=== PATIENT | female | born 1930 | race Caucasian/White ===

== ENCOUNTER 2020-06-29 11:58 | Observation (INO) ==
[2020-06-29] MEDS ORDERED: 0.9 % Sodium Chloride 500 ML IVC PRN (12:20)
[2020-06-29] MEDS ORDERED: DilTIAZem 50 MG/50 ML IV.SOLN IVC SCH (12:30)
[2020-06-29 12:31] LABS: Bilirubin,Urine Negative (Negative); Blood,Urine Trace-intact (Negative); Clarity,Urine Clear (Clear); Color,Urine Yellow (Yellow); Glucose,Urine (UA) Normal (Normal); Ketones,Urine Negative (Negative); Leukocyte Esterase,Urine Negative (Negative); Nitrite,Urine Negative (Negative); Protein,Urine Negative (Neg-Trace); Specific Gravity,Urine 1.015 (1.010-1.025); Urobilinogen,Urine Normal (Normal)
[2020-06-29 12:38] LABS: Bacteria,Urine Few per hpf (None-Few); RBC,Urine 0-3 per hpf (0-3); Squamous Epithelial Cell,Urine Few per hpf (None-Few); WBC,Urine 0-3 per hpf (0-3)
[2020-06-29 12:47] LABS: Basophils # 0.1 K/mcL (0.0-0.2); Basophils % 0.7 %; Eosinophils # 0.1 K/mcL (0.0-0.6); Eosinophils % 0.8 %; Hematocrit 37.8 % (35.3-44.9); Hemoglobin 12.2 g/dL (11.5-15.4); Immature Granulocytes % 0.5 % (0-4); Lymphocytes # 1.6 K/mcL (0.6-4.6); Lymphocytes % 18.8 %; Mean Corpuscular HGB Conc 32.3 g/dL (31.6-35.5); Mean Corpuscular Hemoglobin 31.5 pg (28.0-33.3); Mean Corpuscular Volume 97.7 fL (83.0-100.0); Mean Platelet Volume 10.5 fL (9.4-12.4); Monocytes # 0.7 K/mcL (0.0-1.3); Monocytes % 8.5 %; Platelet Count 275 K/mcL (140-400); Red Blood Count 3.87 M/mcL (3.82-4.97); Red Cell Distribution Width 13.9 % (11.5-14.5); Segmented Neutrophils % 70.7 %; White Blood Count 8.5 K/mcL (4.3-11.1)
[2020-06-29 12:52] LABS: INR 2.3; Prothrombin Time 26.5 Seconds (9.4-12.1)
[2020-06-29 12:55] LABS: Activated Partial Thrombo Time 36.6 Seconds (26.0-36.0)
[2020-06-29 13:04] LABS: BUN/Creatinine Ratio 26 (6-26); Blood Urea Nitrogen 40 mg/dL (8-23); Calcium 10.2 mg/dL (8.6-10.3); Carbon Dioxide 22 mEq/L (23-29); Chloride 101 mEq/L (98-107); Glucose 106 mg/dL (70-105); Magnesium 1.8 mg/dL (1.6-2.6); Osmolality,Calculated 288 (280-300); Potassium 5.2 mEq/L (3.5-5.1); Sodium 134 mEq/L (136-145); eGFR For African Americans 39 (> 60); eGFR For Non-African Americans 32 (> 60)
[2020-06-29 13:05] LABS: Troponin I < 0.03 ng/mL (< 0.04)
[2020-06-29] MEDS ORDERED: MOM Conc 10 ML UD.LIQ PO PRN (15:20)
[2020-06-29] MEDS ORDERED: Ondansetron 4 MG/2 ML VIAL IVP PRN (15:20)
[2020-06-29] MEDS ORDERED: Mag Hydrox/Al Hydrox/Simeth 30 ML UDC PO PRN (15:20)
[2020-06-29] MEDS ORDERED: Melatonin 3 MG TABLET PO PRN (15:20)
[2020-06-29] MEDS ORDERED: Naloxone 0.4 MG/ML INJ IVP PRN (15:20)
[2020-06-29] MEDS ORDERED: Ondansetron ODT 4 MG TAB.RAPDIS SL PRN (15:20)
[2020-06-29] MEDS ORDERED: Acetaminophen 325 MG TABLET PO PRN (15:20)
[2020-06-29] MEDS ORDERED: Perflutren Lipid Microsphere 1.3 ML in 0.9 % Sodium Chloride 8.7 ML IVP PRN ×2 (15:29→18:06)
[2020-06-29] MEDS ORDERED: Furosemide 40 MG TABLET PO SCH (15:30)
[2020-06-29] MEDS ORDERED: 0.9 % Sodium Chloride 1,000 ML IVC SCH (15:30)
[2020-06-29] MEDS ORDERED: Levalbuterol Neb 1.25 MG/3 ML IH PRN (16:11)
[2020-06-29] MEDS ORDERED: Furosemide 20 MG/2 ML VIAL IVP SCH (17:00)
[2020-06-29] MEDS ORDERED: MethylPREDNISolone 40 MG/ML VIAL IVP SCH (18:00)
[2020-06-29] MEDS ORDERED: Azithromycin 500 MG in 0.9 % Sodium Chloride 250 ML IVPB SCH (20:00)
[2020-06-29] MEDS ORDERED: Cholestyramine 4 GM POWD.PACK PO SCH (21:00)
[2020-06-29] MEDS ORDERED: Apixaban 2.5 MG TABLET PO SCH (21:00)
[2020-06-29] MEDS ORDERED: cefTRIAXone 1,000 MG in Water for inj. (sterile) 10 ML IVP SCH (21:00)
[2020-06-29] MEDS ORDERED: Metoprolol XL (24 HR) Succ 25 MG TAB.ER.24H PO SCH (21:00)
[2020-06-29] MEDS ORDERED: 0.9 % Sodium Chloride 250 ML IVC ONE ×2 (22:39→22:40)
[2020-06-29 23:17] LABS: Adenovirus Not Detected (Not Detect); Coronavirus 229E Not Detected (Not Detect); Coronavirus HKU1 Not Detected (Not Detect); Coronavirus NL63 Not Detected (Not Detect); Coronavirus OC43 Not Detected (Not Detect); Human Metapneumovirus Not Detected (Not Detect); Human Rhinovirus/Enterovirus Not Detected (Not Detect); Influenza A Subtype 2009 H1 Not Detected (Not Detect); SARS-CoV-2 Not Detected (Not Detect)
[2020-06-29 23:18] LABS: Bordetella Pertussis Not Detected (Not Detect); Chlamydophila pneumoniae Not Detected (Not Detect); Influenza B Not Detected (Not Detect); Mycoplasma pneumoniae Not Detected (Not Detect); Parainfluenza Virus 1 Not Detected (Not Detect); Parainfluenza Virus 2 Not Detected (Not Detect); Parainfluenza Virus 3 Not Detected (Not Detect); Parainfluenza Virus 4 Not Detected (Not Detect); Respiratory Syncytial Virus Not Detected (Not Detect)
[2020-06-29 23:56] VITALS: BP 144/112
[2020-06-30] MEDS ORDERED: Famotidine 20 MG TABLET PO SCH (09:00)
[2020-06-30] MEDS ORDERED: Aspirin 81 MG TAB.CHEW PO SCH (09:00)
[2020-06-30] MEDS ORDERED: Lactobacillus 1 EACH CAP.SPRINK PO SCH (09:00)
[2020-06-30] MEDS ORDERED: lisinopriL 5 MG TABLET PO SCH (09:00)
== END 2020-06-30 02:30 | disposition short-term general hospital (02) ==
LOC: INPGRE 11:58 → EMEROOGRE 11:58 → INPGRE 15:09
PROVIDERS: ADMIT Family Medicine; ATTEND Family Medicine